=== PATIENT | male | born 1935 | race Caucasian/White ===

== ENCOUNTER → 2017-02-22 | Day surgery (SDC) | payer MEDICARE, OTHER ==
[~2017-02-22] VITALS: Ht 177.8 cm; Wt 74.8 kg
[~2017-02-22] MED LIST: ACETAMINOPHEN 325 MG TAB PO PRN; ACETYLCHOLINE OPHTH SOLN 1% 2ML As Ordered ONE; ASPI1TAB PO; ATOR1TAB19 PO; AcetaZOLAMIDE 500 MG ER CAP PO ONE; BALANCED SALT IRRIGATION SOLUTION 500ML BAG (FOR OR EYE MACHINE) As Ordered ONE; CALC600T10 PO; CEFUROXIME 1MG/0.1ML INTRACAMERAL INJ As Ordered ONE; CLAR10CA3 PO; CYCLOPENTOLATE 2% OPHTH SOLN OS ONE; D5W/0.2% SODIUM CHLORIDE 250 ML IV SCH; FOSI1TAB8 PO; HEALON DUET (HEALON 10MG/ML 0.55ML & HEALON ENDOCOAT 30MG/ML 0.85ML) As Ordered ONE; KETOROLAC 0.5% OPHTH SOLN OS ONE; LATA5OPD OU; LIDOCAINE 1% SDV 5 ML VIAL As Ordered ONE; LIDOCAINE 4% INJ 5 ML AMP OU ONE; LYRI100C10 PO; METF500T PO; METO25TA74 PO; MIDAZOLAM INJ 2 MG/2 ML VIAL (J2250) As Ordered ONE; MULT1TAB9 PO; OFLOXACIN 0.3 % (OCUFLOX) OPTH SOL 5ML OS ONE; PHENYLEPHRINE 2.5% OPHTH SOL 2ML OS ONE; POVIDONE-IODINE 5% OPHTH PREP SOL 30ML As Ordered ONE; PRAN0.5T3 PO; PROPARACAINE 0.5% OPHTH SOL 15ML OS PRN; SUPETAB25 PO; SYMB16INH INH; TRIMETHOBENZAMIDE 300 MG CAP PO PRN; TROPICAMIDE 1% OPHTH SOLN 2 ML OS ONE; fentaNYL 100 MCG/2 ML INJECTION (J3010) As Ordered ONE
[2017-02-22 10:30] VITALS: BP 135/60
--- NOTE | 2017-02-22 10:30 | RO ---
DATE OF PROCEDURE: 02/22/2017 PREPROCEDURE DIAGNOSIS: Age-related nuclear cataract, left eye. POSTPROCEDURE DIAGNOSIS: Age-related nuclear cataract, left eye. PROCEDURE: Phacoemulsification and posterior chamber intraocular lens implantation, left eye. Lens used is a [id number] 19.0 diopter. SURGEON: Yaneth Cantu MD BUSINESS ANALYTICS MANAGER: ANESTHESIA: Topical with sedation. DESCRIPTION OF PROCEDURE: The patient was prepped and draped in the usual fashion. A lid speculum was placed between the lids. The eye was fixated. A stab incision was made to the anterior chamber, and 1% nonpreserved Lidocaine was instilled. Then, viscoelastic was instilled. The eye was refixated. A 2.75 mm sapphire keratome was used to make a clear corneal temporal limbal incision. Capsulorrhexis was begun with a 30-gauge bent needle and then carried out in a circular fashion with capsulorrhexis forceps. The lens was hydrodissected, and then the phacoemulsification unit was used to make a groove in the nucleus and two meridians. The nucleus was then cracked into four quadrants. Each quadrant was removed with the phacoemulsification unit. Any remaining cortex was removed with the I and A unit. Capsular bag was refilled with viscoelastic. A posterior chamber intraocular lens was placed in the capsular bag without difficulty. Any remaining viscoelastic was removed with the I and A unit. The wound was hydrated, and Miochol and cefuroxime were instilled into the anterior chamber.
== END | disposition home or self-care (01) ==
LOC: M SDC 08:36
PROVIDERS: ATTEND Ophthalmology
DX: H25.12 Age-related nuclear cataract, left eye (principal); I10 Essential (primary) hypertension; I25.10 Atherosclerotic heart disease of native coronary artery without angina pectoris; E78.5 Hyperlipidemia, unspecified; Z79.899 Other long term (current) drug therapy; Z87.891 Personal history of nicotine dependence; Z79.82 Long term (current) use of aspirin; Z98.61 Coronary angioplasty status; Z85.038 Personal history of other malignant neoplasm of large intestine
CPT/HCPCS: 66984; J2250; J3010; V2632

== ENCOUNTER → 2019-03-04 | Outpatient (REF) | payer MEDICARE, OTHER ==
[~2019-03-04] MED LIST changes: -ACETAMINOPHEN 325 MG TAB PO PRN; -ACETYLCHOLINE OPHTH SOLN 1% 2ML As Ordered ONE; -ASPI1TAB PO; +ASPI81TA26 PO; -AcetaZOLAMIDE 500 MG ER CAP PO ONE; -BALANCED SALT IRRIGATION SOLUTION 500ML BAG (FOR OR EYE MACHINE) As Ordered ONE; -CALC600T10 PO; +CALC600T31 PO; -CEFUROXIME 1MG/0.1ML INTRACAMERAL INJ As Ordered ONE; -CYCLOPENTOLATE 2% OPHTH SOLN OS ONE; -D5W/0.2% SODIUM CHLORIDE 250 ML IV SCH; -FOSI1TAB8 PO; +FOSI20TA60 PO; -HEALON DUET (HEALON 10MG/ML 0.55ML & HEALON ENDOCOAT 30MG/ML 0.85ML) As Ordered ONE; -KETOROLAC 0.5% OPHTH SOLN OS ONE; +LATA0.0013 OU; -LATA5OPD OU; -LIDOCAINE 1% SDV 5 ML VIAL As Ordered ONE; -LIDOCAINE 4% INJ 5 ML AMP OU ONE; -LYRI100C10 PO; -METF500T PO; +METF500T13 PO; +METO1TAB32 PO; -METO25TA74 PO; -MIDAZOLAM INJ 2 MG/2 ML VIAL (J2250) As Ordered ONE; -OFLOXACIN 0.3 % (OCUFLOX) OPTH SOL 5ML OS ONE; -PHENYLEPHRINE 2.5% OPHTH SOL 2ML OS ONE; -POVIDONE-IODINE 5% OPHTH PREP SOL 30ML As Ordered ONE; +PREG100CA PO; -PROPARACAINE 0.5% OPHTH SOL 15ML OS PRN; -TRIMETHOBENZAMIDE 300 MG CAP PO PRN; -TROPICAMIDE 1% OPHTH SOLN 2 ML OS ONE; -fentaNYL 100 MCG/2 ML INJECTION (J3010) As Ordered ONE
== END ==
LOC: M LAB LCGH 09:05
PROVIDERS: ATTEND Surgery
DX: C44.310 Basal cell carcinoma of skin of unspecified parts of face (principal)

== ENCOUNTER → 2019-07-31 | Outpatient (REF) | LOC: M LAB LCGH 10:59 | PROVIDERS: ATTEND Nurse Practitioner Family | DX: D48.9 Neoplasm of uncertain behavior, unspecified (principal) ==

== ENCOUNTER → 2022-08-05 | Outpatient (CLI) | payer MEDICARE, OTHER | LOC: M RAD 11:35 | PROVIDERS: ATTEND Surgery | DX: L97.522 Non-pressure chronic ulcer of other part of left foot with fat layer exposed (principal) ==

== ENCOUNTER → 2022-08-23 | Outpatient (POV) | payer MEDICARE, OTHER ==
[~2022-08-23] VITALS: Ht 177.8 cm; Wt 77.2 kg
[2022-08-23 15:00] VITALS: BP 137/79
== END ==
LOC: M IRPOV 14:22
PROVIDERS: ATTEND Radiology Diagnostic Radiology
DX: T87.89 Other complications of amputation stump (principal); E11.22 Type 2 diabetes mellitus with diabetic chronic kidney disease; E78.5 Hyperlipidemia, unspecified; H40.9 Unspecified glaucoma; I12.9 Hypertensive chronic kidney disease with stage 1 through stage 4 chronic kidney disease, or unspecified chronic kidney disease; I25.10 Atherosclerotic heart disease of native coronary artery without angina pectoris; J44.9 Chronic obstructive pulmonary disease, unspecified; N18.9 Chronic kidney disease, unspecified; Z79.51 Long term (current) use of inhaled steroids; Z79.82 Long term (current) use of aspirin; Z79.84 Long term (current) use of oral hypoglycemic drugs; Z79.899 Other long term (current) drug therapy; Z85.46 Personal history of malignant neoplasm of prostate; Z95.1 Presence of aortocoronary bypass graft; Z87.891 Personal history of nicotine dependence; Z89.422 Acquired absence of other left toe(s)

== ENCOUNTER → 2022-11-22 | Outpatient (CLI) | payer MEDICARE, OTHER | LOC: M RAD 12:20 | PROVIDERS: ATTEND Internal Medicine | DX: Z53.9 Procedure and treatment not carried out, unspecified reason (principal) ==

== ENCOUNTER → 2023-04-11 | Outpatient (POV) | payer MEDICARE, OTHER ==
[~2023-04-11] VITALS: Ht 177.8 cm; Wt 79.5 kg
[~2023-04-11] MED LIST changes: +BICA50TA9 PO; +FLOM0.4C39 PO; +IBUP200C25 PO; +LANTINJ4 SC; +LEUP22.54 IM; +LOTE5DRO9 OP; +OMEG1CAP PO; +PANT40TA29 PO; +XTAN40CA PO
[2023-04-11 13:10] VITALS: BP 162/74
== END ==
LOC: M IRPOV 12:55
PROVIDERS: ATTEND Radiology Diagnostic Radiology
DX: I70.202 Unspecified atherosclerosis of native arteries of extremities, left leg (principal); L97.228 Non-pressure chronic ulcer of left calf with other specified severity

== ENCOUNTER → 2023-04-17 | Outpatient (CLI) | payer MEDICARE, OTHER ==
[~2023-04-17] MED LIST changes: +ISOVUE-300 61% 100ML VIAL As Ordered ONE; +LIDOCAINE 1% MDV 20ML VIAL As Ordered ONE; +MIDAZOLAM INJ 2MG/2ML VIAL As Ordered ONE; +NS 1,000 ML IV SCH; +diphenhydrAMINE 50MG/ML VIAL As Ordered ONE; +fentaNYL 100 MCG/2 ML INJECTION As Ordered ONE
[2023-04-17 07:00] VITALS: TEMP 96.8
[2023-04-17 07:35] LABS: MEAN CORPUSCULAR HEMOGLOBIN 30.1 pg (27.0-33.0); MEAN CORPUSCULAR HGB CONC 32.4 g/dl (32.0-36.5); MEAN CORPUSCULAR VOLUME 93.2 fl (80.0-96.0); PLATELET COUNT, AUTOMATED 161 10^3/uL (150-450); RED BLOOD COUNT 3.65 10^6/uL (4.30-6.10); WHITE BLOOD COUNT 7.4 10^3/uL (4.0-10.0)
[2023-04-17 08:30] LABS: CREATININE FOR GFR 1.39 MG/DL (0.70-1.30); GLOMERULAR FILTRATION RATE 51.6 (>35); POTASSIUM SERUM 4.6 MMOL/L (3.5-5.1)
[2023-04-17 15:00] VITALS: BP 143/69; O2SAT 98
== END ==
LOC: M IRPRO 06:24
PROVIDERS: ATTEND Radiology Diagnostic Radiology
DX: I73.9 Peripheral vascular disease, unspecified (principal); L97.909 Non-pressure chronic ulcer of unspecified part of unspecified lower leg with unspecified severity; Z79.82 Long term (current) use of aspirin; Z79.4 Long term (current) use of insulin; Z79.84 Long term (current) use of oral hypoglycemic drugs
CPT/HCPCS: 36246; 75630; 75774; 80048; 85027; 99152; 99153; C1760; C1769; C1887; C1894; J2250; J3010; Q9967

== ENCOUNTER → 2023-05-09 | Outpatient (POV) | payer MEDICARE, OTHER ==
[~2023-05-09] VITALS: Ht 177.8 cm; Wt 77.2 kg
[~2023-05-09] MED LIST changes: -ISOVUE-300 61% 100ML VIAL As Ordered ONE; -LIDOCAINE 1% MDV 20ML VIAL As Ordered ONE; -MIDAZOLAM INJ 2MG/2ML VIAL As Ordered ONE; -NS 1,000 ML IV SCH; -diphenhydrAMINE 50MG/ML VIAL As Ordered ONE; -fentaNYL 100 MCG/2 ML INJECTION As Ordered ONE
[2023-05-09 15:40] VITALS: BP 111/60; O2SAT 100
== END ==
LOC: M IRPOV 14:38
PROVIDERS: ATTEND Radiology Diagnostic Radiology
DX: I73.9 Peripheral vascular disease, unspecified (principal); L97.909 Non-pressure chronic ulcer of unspecified part of unspecified lower leg with unspecified severity; Z79.82 Long term (current) use of aspirin; Z79.4 Long term (current) use of insulin; Z79.84 Long term (current) use of oral hypoglycemic drugs

== ENCOUNTER → 2024-11-20 | Outpatient (REF) | payer MEDICARE, OTHER ==
[~2024-11-20] MED LIST changes: +BICA50TA4 PO; -BICA50TA9 PO
[2024-11-20 16:41] LABS: ALBUMIN 3.5 G/DL (3.2-5.2); BILIRUBIN,TOTAL 0.3 MG/DL (0.3-1.2); CREATININE FOR GFR 1.57 MG/DL (0.70-1.30); GLOMERULAR FILTRATION RATE 44.6 (>35); TOTAL PROTEIN 7.7 G/DL (5.7-8.2)
== END ==
LOC: M SFHCWOUN 16:16
PROVIDERS: ATTEND Physician Assistant
DX: E11.621 Type 2 diabetes mellitus with foot ulcer (principal)

== ENCOUNTER → 2024-12-05 | Outpatient (CLI) | payer MEDICARE, OTHER ==
[~2024-12-05] MED LIST changes: +ISOVUE-370 76% 100ML VIAL As Ordered ONE
== END ==
LOC: M RAD 13:40
PROVIDERS: ATTEND Physician Assistant
DX: I73.9 Peripheral vascular disease, unspecified (principal); L97.522 Non-pressure chronic ulcer of other part of left foot with fat layer exposed; N13.4 Hydroureter
CPT/HCPCS: 73706; Q9967

== ENCOUNTER → 2025-01-15 | Outpatient (POV) | payer MEDICARE, OTHER ==
[~2025-01-15] MED LIST changes: +INSUDET; -ISOVUE-370 76% 100ML VIAL As Ordered ONE
== END ==
LOC: M IRPOV 15:33
PROVIDERS: ATTEND Radiology Diagnostic Radiology
DX: I70.245 Atherosclerosis of native arteries of left leg with ulceration of other part of foot (principal); E11.42 Type 2 diabetes mellitus with diabetic polyneuropathy; E11.51 Type 2 diabetes mellitus with diabetic peripheral angiopathy without gangrene; L97.526 Non-pressure chronic ulcer of other part of left foot with bone involvement without evidence of necrosis; Z79.82 Long term (current) use of aspirin; Z79.899 Other long term (current) drug therapy; Z82.49 Family history of ischemic heart disease and other diseases of the circulatory system; Z89.422 Acquired absence of other left toe(s)

== ENCOUNTER → 2025-05-27 | Outpatient (CLI) | payer MEDICARE, OTHER ==
[~2025-05-27] MED LIST changes: +ACIDCAP8 PO; +ATOR40TA75 PO; +BACI1CAP PO; +BUDE10.22 INH; +CEFD1CAP9 PO; +CLOP75TA2 PO; +DOCU100C16 PO; +DOXY100T PO; -FLOM0.4C39 PO; +GLYX1TAB3 PO; +GNP45TAB2 PO; +INSU100I26 SQ; +LANTINJ4 SQ; +LUPR22.5 IM; +METRCRM TOP; +MULT-40 PO; +OYST500T12 PO; +PREG-35 PO; -PREG100CA PO; +TAMS-18 PO; +VITA100093 PO; +VITATAB73 PO; +XALA0.007 OU; +XGEVINJ SC
== END ==
LOC: M RAD 14:04
PROVIDERS: ATTEND Radiology Diagnostic Radiology
DX: I73.9 Peripheral vascular disease, unspecified (principal)

== ENCOUNTER → 2025-06-04 | Outpatient (POV) | payer MEDICARE, OTHER ==
[~2025-06-04] VITALS: Ht 172.7 cm; Wt 70.5 kg
[2025-06-04 11:15] VITALS: BP 122/60; O2SAT 100
== END ==
LOC: M IRPOV 10:53
PROVIDERS: ATTEND Radiology Diagnostic Radiology
DX: Z48.812 Encounter for surgical aftercare following surgery on the circulatory system (principal); I87.312 Chronic venous hypertension (idiopathic) with ulcer of left lower extremity; L97.429 Non-pressure chronic ulcer of left heel and midfoot with unspecified severity; Z79.01 Long term (current) use of anticoagulants; Z79.82 Long term (current) use of aspirin; Z79.899 Other long term (current) drug therapy

== ENCOUNTER → 2025-09-08 | Outpatient (CLI) | payer MEDICARE, OTHER | LOC: M RAD 13:07 | PROVIDERS: ATTEND Radiology Diagnostic Radiology | DX: I73.9 Peripheral vascular disease, unspecified (principal) ==

== ENCOUNTER → 2025-09-17 | Outpatient (POV) | payer MEDICARE, OTHER ==
[~2025-09-17] VITALS: Ht 167.6 cm; Wt 70.5 kg
[2025-09-17 14:05] VITALS: BP 115/62; O2SAT 95
== END ==
LOC: M IRPOV 13:37
PROVIDERS: ATTEND Registered Nurse School
DX: Z48.812 Encounter for surgical aftercare following surgery on the circulatory system (principal); I70.249 Atherosclerosis of native arteries of left leg with ulceration of unspecified site; L97.929 Non-pressure chronic ulcer of unspecified part of left lower leg with unspecified severity